=== PATIENT | female | born 1940 | race Caucasian/White ===

== ENCOUNTER 2016-05-17 09:04 | Observation (INO) | payer MEDICARE ==
[~2016-05-17] VITALS: Ht 149.9 cm; Wt 68.7 kg
[~2016-05-17 09:04] MED LIST: ASPI-973 PO; CALC-235 PO; LOSA1TAB69 PO; MULT1CAP33 PO; OMEP20TA86 PO; SIMV10TA4 PO
[2016-05-17 09:07] VITALS: BP 179/80; PULSE 85; RESP 16; O2SAT 96
--- NOTE | 2016-05-17 09:14 | ED.REPORT ---
HPI-General Illness Date of Service May 17, 2016 ED Provider: Dr. Rebolledo Pt is a 76 y/o female w/ a hx of HTN presenting to the ED w/ her c/o intermittent irregular chest palpitations onset about 2 weeks ago. Her palpitations last about a few seconds at a time usually but this morning seemed to increase in frequency She c/o mild chest pressure, nausea, mild SOB. She has also been experiencing some increased chest pressure with mild radiation to the upper back and dyspnea on exertion intermittently for the past month which she has been experiencing mildly for about 1 year. She does not experience any chest pressure or pain at rest. She denies fever, chills, cough, vomiting, sore throat, nasal congestion, abdominal pain. She denies any history of cardiac disease/dysrhythmia. She says that her last echocardiogram was performed years ago (this is not found in her medical record). Nursing Notes Stated Complaint: SOB Chief Complaint: Dysrhythmia/Cardiac Nursing Notes Reviewed: Yes Allergies: Coded Allergies: Contrast Media (Verified Allergy, Severe, HIVES, 05/13/15) iodine (Verified Allergy, Severe, HIVES, 05/13/15) Scheduled Aspirin (Aspirin) 81 Mg Tablet 81 MG PO DAILY Losartan/HCTZ 50-12.5 mg (Losartan/HCTZ 50-12.5 mg) 1 Each Tablet 1 EACH PO DAILY Omeprazole (Omeprazole) 20 Mg Tablet.dr 20 MG PO DAILY Simvastatin (Simvastatin) 10 Mg Tablet 10 MG PO HS Miscellaneous Medications Calcium Carbonate/Vitamin D3 (Calcium 250+D Tablet) 1 Each Tablet 1 EACH PO Multivitamin (Multivitamins) 1 Each Capsule 1 EACH PO General Time Seen by MD: 09:14 Chief Complaint Other (Palpitations) Hx Obtained From: Patient Arrived By: Walk-in Sudden in Onset?: No Onset Occurred: More than a week ago... (2 weeks) Symptom Duration: Intermittent Location: : Chest Quality: Pressure Radiation: : Back Severity: Current: Mild Severity: Maximum: Mild Relieved by: Rest Recent Healthcare: No recent doctor visit Similar Sx Previous: Yes Past Medical History Past Medical History Hypertension Pre-pyloric ulcer Denies: Asthma, COPD, Cancer, Coronary artery disease, Diabetes mellitus, Stroke Denies: Atrial fibrillation, Atrial flutter, Kidney disease, Thyroid disease Past Surgical History Multiple endoscopies Cholecystectomy, cataract surgery Hysterectomy Tonsillectomy Smoking History Never Smoker Social History Alcohol Use: Denies alcohol use Drug Use: Denies drug use Other Social History: Good social support, Ambulatory Status Independent Review of Systems Full Review of Systems Constitutional: Denies: Chills, Fever Ears / Nose / Throat: Denies: Nasal congestion, Sore throat Respiratory: Reports: Shortness of breath, Denies: Non-productive cough Cardiovascular: Reports: Chest pain, Dyspnea on exertion, Palpitations GI: Reports: Nausea, Denies: Abdominal pain, Constipation, Diarrhea, Vomiting Complete sys rev & neg: except as marked. Physical Exam Vital Signs Vital Signs Date Time Temp Pulse Resp B/P Pulse Ox O2 Delivery O2 Flow Rate FiO2 05/17/16 09:07 36.5 85 16 179/80 96 Room Air Initial VS: Reviewed, Vital signs abnormal Head / Eyes: Atraumatic, Normocephalic, PERRL ENT: Mucous membranes moist, Conjunctiva normal, No scleral icterus Neck: Supple, Full range of motion Respiratory: Breath sounds normal, Clear to auscultation, No respiratory distress Cardiovascular: Regular rate & rhythm, Heart sounds normal, Intact distal pulses Abdomen / GI: Soft, Non-tender, No guarding, No rebound, No distention Extremities: Vascular intact, Neuro intact, No swelling, No tenderness Skin: Warm, Dry, No cyanosis Neurologic: Alert, Oriented, Nonfocal Psychiatric: Mood/affect normal, Behavior normal, Normal thought content General/Constitutional: Awake, Alert, No acute distress, Well appearing, Well hydrated, Cooperative, Not toxic appearing Cardiovascular: Heart rate NL, Regular rhythm, Heart sounds NL, No gallop, No murmurs, No rubs, Cap refill not delayed, Peripheral circulation NL Her palpitations are consistent with PVCs seen on the monitor which reproduce her symptoms with a frequency of a few per minute Interpretation & Diagnostics Lab Results Interpretation Result Diagram: 05/17/16 0940 05/17/16 0940 Test 05/17/16 09:40 White Blood Count 9.5th/mm3 (3.8-10.1) Red Blood Count 4.57mil/mm3 (3.90-5.20) Hemoglobin 13.9g/dL (12.0-15.6) Hematocrit 41.3% (35.0-46.0) Mean Corpuscular Volume 90.4fL (81-100) Mean Corpuscular Hemoglobin 30.4pg (27.0-35.0) Mean Corpuscular Hemoglobin Concent 33.7% (32.0-37.0) Red Cell Distribution Width 12.8% (12.3-15.4) Platelet Count 316bil/L (150-400) Neutrophils (%) (Auto) 53.1% (40-74) Lymphocytes (%) (Auto) 31.7% (14-46) Monocytes (%) (Auto) 10.4% (4-12) Eosinophils (%) (Auto) 3.4% (0-5) Basophils (%) (Auto) 1.0% (0-3) Sodium Level 141mEq/L (134-144) Potassium Level 4.8mEq/L (3.5-5.2) Chloride Level 103mEq/L (97-108) Carbon Dioxide Level 20mmol/L (18-29) Blood Urea Nitrogen 21mg/dL (8-27) Creatinine 0.90mg/dL (0.57-1.00) Estimat Glomerular Filtration Rate 87mL/min (>59) Glucose Level 125mg/dL (60-99) Calcium Level 9.4mg/dL (8.5-10.1) Magnesium Level 1.8mg/dL (1.6-2.6) Total Bilirubin 0.3mg/dL (0.0-1.2) Aspartate Amino Transf (AST/SGOT) 30U/L (0-50) Alanine Aminotransferase (ALT/SGPT) 25U/L (0-32) Alkaline Phosphatase 64U/L (25-165) Troponin T 0.010ug/L (0.0-0.011) Total Protein 7.6g/dL (6.4-8.4) Albumin 4.0g/dL (3.4-5.0) ECG Interpretation Time: 09:26 Interpreted by: ED physician Normal ECG Interpretation: Normal ECG w/ rate of... (74), Normal rate, Normal sinus rhythm, No acute ischemic changes, Normal QRS, Normal axis, Normal intervals, Adequate tracing X-Ray Chest Interpretation View: Portable, 1 view Interpretation / Wet Read by: Wet read ED physician NL X-Ray Chest Findings: No infiltrate, No acute disease Re-Eval/Medical Decision Med Decision/Clinical Course PVCs on the monitor seemed to correlate with her symptoms as noted. The thing that worries me about this woman is her age and risk factor of hypertension in the setting of increasing exertional angina over the past months with rest angina this morning associated with achiness across her precordium and back with associated nausea and diaphoresis. The symptoms are resolved now but were somewhat recurrent with minimal exertion here in the emergency department. For these reasons I believe that hospital observation with definitive stress testing is the most appropriate course of action. She is symptom free at rest at this time. Source of Hx: Old records, Family Time of Eval: 10:25 Re-Evaluation/Progress Note: Pt rechecked. She felt a little bit lightheaded and short of breath walking from the bathroom to her room. Pt informed of need for admission for further cardiac workup. Pt understands and agrees with plan for admission. All questions addressed. Consultation : Referral / Consult Name: Ramírez Hathaway MD Consulted With: Hospitalist Requested Call at: 10:48 Call Returned at: 10:52 Counseled Regarding: Diagnosis, Lab results, Need for admission Discharge & Departure Primary Impression: Chest pain Chest pain type: unspecified Qualified Code: R07.9 - Chest pain, unspecified Additional Impression: Premature ventricular contractions Disposition: ADMITTED TO HOSPITAL Discharge Condition All VS Reviewed: Yes Condition: Stable Referrals: Dayne Ruiz MD Attestation Portions of this note were transcribed by Modesto Rodriguez. I, Dr. Rebolledo personally performed the history, physical exam and medical decision-making; I reviewed and confirmed the accuracy of the information in the transcribed note. Signed by Joshua Hi, 05/17/16 - 1036 copies to: Dayne Ruiz MD Risk Factors )( CAD Risk Stratification HypertensionNo Amphetamine, No Cocaine, No Diabetes mellitus, No Family history , No Hyperlipidemia, No Known CAD, No Smoking Risk factors reviewed HEART Score HEART for MACE: Mod index of susp (1), Normal ECG (0), Age 65 or over (2), 1-2 CAD risk factors (1), < or = to NL troponin (0) HEART for MACE Score: 4-7 (mod risk 12%-16.6%) Law Rebolledo MD May 17, 2016 09:14 MODESTO RODRIGUEZ May 17, 2016 09:25
[2016-05-17 09:50] LABS: EOSINOPHILS % (AUTO) 3.4 % (0-5); MONOCYTES % (AUTO) 10.4 % (4-12); Mean Corpuscular Hemoglobin 30.4 pg (27.0-35.0); Mean Corpuscular Volume 90.4 fL (81-100); NEUTROPHILS % (AUTO) 53.1 % (40-74); Platelet Count 316 bil/L (150-400)
[2016-05-17 10:16] LABS: TROPONIN T 0.01 ug/L (0.0-0.011)
--- NOTE | 2016-05-17 10:26 | DRSVH ---
PROCEDURE: X-RAY CHEST ONE VIEW, PORTABLE ([id number]) INDICATIONS: Chest pain TECHNIQUE: One view of the chest was acquired. COMPARISON: None. FINDINGS: Surgical changes and devices: None. Lungs and pleura: No pleural effusions or pneumothorax. Lungs are clear. Mediastinum: Mediastinal contours appear normal. Heart size is normal. Bones and chest wall: No suspicious bony lesions. Overlying soft tissues appear unremarkable. IMPRESSION: No acute process. Dictated by: Adeline Perez M.D. on 05/17/2016 at 10:23 Approved by: Adeline Perez M.D. on 05/17/2016 at 10:24
[2016-05-17 10:27] LABS: Magnesium 1.8 mg/dL (1.6-2.6)
[2016-05-17] MEDS ORDERED: Alum-Mag Hydrox-Simeth 30 mL Suspension PO PRN ×2 (10:55→12:05)
[2016-05-17] MEDS ORDERED: Ondansetron 2 mg/mL 2 mL Inj IVPUSH PRN ×2 (10:55→12:05)
[2016-05-17 10:57] VITALS: BP 150/52; PULSE 69; RESP 19; O2SAT 97
[2016-05-17] MEDS ORDERED: Polyethylene Glycol (PEG) 17 Gm Powder PO PRN (12:05)
[2016-05-17 12:41] LABS: Creatine Kinase 105 U/L (21-215)
--- NOTE | 2016-05-17 13:14 | PCM.HPMED ---
Subjective Date of Service May 17, 2016 Primary Provider: Admitting Physician: Ramírez Hathaway MD Primary Care Physician: Dayne Ruiz MD Attending Physician: Ramírez Hathaway MD Chief Complaint: Palpitation History of Present Illness: Patient is a 76yof with MHx significant for longstanding HTN and dyslipidemia presents with palpitation. Per patient, she woke-up this morning with "fluttery feeling" and associated nausea, lightheadedness, and mild sob unattenuated. She states to having this "butterfly" feeling for the past 1-2wks at least 1-2x daily. Last night however , she woke up with a similar feeling with sweating. Thus, sought medical attention. She denies any chest pain or left arm numbness. Patient is normally active, walks >1mi daily. Though, admits chest pressure at the end of each mile. This has been ongoing for the past 6mo. No recent changes in medications. Review of Systems: Patient is admitted under observation status with expected length of stay LESS than 2 midnights due to severity of presenting symptoms, risk of adverse event, and complexity of treatment plan. Allergies Coded Allergies: Contrast Media (Verified Allergy, Severe, HIVES, 05/13/15) iodine (Verified Allergy, Severe, HIVES, 05/13/15) Home Medications lLosartan/HCTz 50-12.5mg daily Simvastatin 10mg daily Aspirin 8mg daily Calcium + vit D Multivitamins PMH Hypertension Dyslipidemia Surgical History Breast biopsy Histonectomy Cholecystectomy cataract surgery both eyes Family History Father of cancer No hx of early from [place] in the family Social History Occupation: tax staff accountant Hx Alcohol Use: Yes (ONE DRINK EVERY TWO WEEKS) Hx Substance Use: No Hx Tobacco Use: No Smoking Status: Never Smoker Living Arrangement: with Family Exam Vital Signs Vital Sign - Last Date Time Temp Pulse Resp B/P Pulse Ox O2 Delivery O2 Flow Rate FiO2 05/17/16 11:11 36.7 69 19 150/52 97 Room Air Exam Gen: Lying comfortably at 30degree head tilt HEENT: PERRLA, Anicteric sclerae, moist conjunctivae, and no lid lag. Neck: supple, no JVD Cardio: Regular rate and rhythm, systolic 2+ murmur, no rubs or gallops appreciated Pulm: b/l air sound, no crackles, wheezes, or rhonchi. Normal respiratory effort with no use of accessory muscles. Abd: positive bowel tone. Soft, nontender, nondistended. Extremities: No clubbing, cyanosis, edema, or lymphadenopathy appreciated. Skin: Normal temperature, turgor, and texture; no rash, ulcers, or subcutaneous nodules appreciated. Neuro: Cranial nerves grossly intact. moving equally on all four extremities. Psyc: Normal mood and affect. AoX3 Lab and Diagnostics Result Diagram: 05/17/1640 05/17/16939 X-Rays, CTs and MRIs PROCEDURE: X-RAY CHEST ONE VIEW, PORTABLE INDICATIONS: Chest pain IMPRESSION: No acute process. Dictated by: Adeline Perez M.D. on 05/17/2016 at 10:23 Assessment & Plan Patient is a 76yof with MHx significant for longstanding HTN and dyslipidemia presented with palpitation, admitted for ACS r/o. ACS, present on admission, active -- NO ST changes, Troponin T negative, CK/CkMb negative -- Less likely [place]. Chest pain pretest is intermediate given risk factors however. -- Echocardiogram and NM stress testing ordered -- Aspirin 81mg, statins, and lisinopril/ Hctz started, also PRN nitro and morphine -- Labs troponin trending, TSH pending, CMP in the AM -- Telemetry monitoring for arrhythmias. HTN, present on admission, ongoing -- home meds as above Dyslipidemia, present on admission, presumed stable -- Cont statin -- lipid panel in the AM Hyperglycemia, present on admission, active -- A1c pending DVT prophylaxis: heparin subQ Antipyretic: Acetaminophen PRN Antinausea: Ondansetron PRN Bowel regiment PRN Patient is admitted under observation status with expected length of stay LESS than 2 midnights due to severity of presenting symptoms, risk of adverse event, and complexity of treatment plan. GI Prophylaxis: Not indicated VTE Prophylaxis: Sub-Q Heparin (Unfractionated) Resuscitation Status: CPR: Attempt Resuscitation Attending Statement The patient was seen and examined together with Dr. Willy Prescott on 05/17/2016 and I agree with the history, exam and plan as outlined in the note above. Willy Prescott DO May 17, 2016 13:14 Ramírez aHthaway MD May 26, 2016 10:37
[2016-05-17 14:02] VITALS: PULSE 77
[2016-05-17 14:56] LABS: Creatine Kinase 102 U/L (21-215)
[2016-05-17 14:57] LABS: TROPONIN T < 0.010 ug/L (0.0-0.011)
[2016-05-17] MEDS: Heparin 5,000 Unit/mL Inj SUBQ SCH (16:07)
--- NOTE | 2016-05-17 17:00 | NUR ---
Admit Note: Patient was brought to [facility] from the ER at 1140. Patient is alert and oriented x3 . She states that her chest pain has subsided and she is having no pain at this time. Patients med rec was done in the ER by nurse and report was received from the ER nurse. Patient was oriented to her room caregivers and call light. Admit questions were completed by patients recollection. Patient will be having stress test in the morning. She will be NPO after midnight for the test.Patient stated the last caffeine she had was earlier this morning 1/2 cup of decaf. Telemetry was placed on patient. Per field support technician patients HR is 73 SR.
[2016-05-17 20:00] VITALS: PULSE 75
[2016-05-17 21:05] VITALS: BP 127/68; PULSE 76; RESP 18; O2SAT 93
[2016-05-18] MEDS: Heparin 5,000 Unit/mL Inj SUBQ SCH ×3 (01:16→16:51)
[2016-05-18 01:19] VITALS: BP 121/64; PULSE 70; RESP 18; O2SAT 92
--- NOTE | 2016-05-18 01:56 | NUR ---
No "flutters": Pt denies chest "flutters", which is how she describes it. No chest pain/pressure. Is currently NPO for stress test scheduled later today. Tele has been SR 70s.
[2016-05-18 06:18] VITALS: BP 143/74; PULSE 68; RESP 18; O2SAT 95
[2016-05-18 06:52] LABS: Magnesium 1.8 mg/dL (1.6-2.6)
[2016-05-18 08:19] VITALS: PULSE 83
[2016-05-18] MEDS ORDERED: LOSARTAN PO SCH (08:30)
[2016-05-18] MEDS ORDERED: HCTZ PO SCH (08:30)
[2016-05-18 08:32] LABS: APPEARANCE,URINE HAZY (CLEAR,HAZY); COLOR,URINE YELLOW (YELLOW)
[2016-05-18 08:33] LABS: OCCULT BLOOD,URINE TRACE (NEGATIVE); UROBILINOGEN,URINE NORMAL (NORMAL)
--- NOTE | 2016-05-18 13:38 | DRSVH ---
PROCEDURE: 1 DAY TREADMILL STRESS TEST Rest and exercise myocardial perfusion SPECT with gated imaging and ejection fraction RADIOPHARMACEUTICAL: 8.8 mCi Tc-99m tetrafosmin IV at rest and 29.7 mCi Tc-99m tetrafosmin IV at peak exercise. Eie-hrp-uejywavi was performed. INDICATIONS: 76-year-old woman with palpitations. The patient has hypertension and hyperlipidemia. TECHNIQUE: Radiopharmaceutical was injected at peak stress test, and also at rest. SPECT images wer e obtained. SPECT myocardial perfusion images were displayed in short axis, horizontal long axis, an d vertical long axis views. Gated images were reviewed using [employer] software. COMPARISON: [place], [place], CHANA PERF SPECT MULTI (PNL), 12/21/2006, 14:27. [facility], [place], MYOCARD PERF SPECT SINGLE, 04/06/2011, 8:08. CARDIAC STRESS: A standard [place] treadmill exercise tolerance test was performed by the patient under the supervision of an attending staff. The patient exercised for 3 minutes and 0 seconds; functional aerobic impair ment (PETTY) is +31 %. Hemodynamic data: There is normal blood pressure and heart rate response to exercise stress. Patien t achieved 93% of maximum predicted heart rate at peak exercise. Symptoms: Patient denied chest pain during exercise. EKG: No diagnostic EKG changes of ischemia; rare PACs. FINDINGS: Raw data: There is good myocardial labeling by radiotracer. No significant motion artifacts. Left ventricle function: Gated images demonstrate normal left ventricle wall thickening. No segment al wall motion abnormality. No transient ischemic dilation. The left ventricle resting end-diastoli c volume is normal. Left ventricle stress ejection fraction is greater than 70%; normal values are a steven 45%. Myocardial perfusion: There is normal distribution of activity in the left and right ventricular chana cardium. No fixed or reversible perfusion defects. Comparison to prior examinations: Compared with the last examination on 04/06/2011, there is no signi ficant change. IMPRESSION: 1. Normal myocardial perfusion images. 2. Normal left ventricular volume and systolic function. 3. Reduced exercise capacity. No chest pain or diagnostic EKG changes for ischemia. PQRS ATTESTATIONS: Measure 322 - Is this imaging test primarily performed on a low-risk surgery patient for preoperative evaluation within 30 days preceding their low-risk non-cardiac surgery? Low-risk surgery is defined as cardiac or myocardial infarction less than 1%, including (but not limited to) endoscopic pr ocedures, superficial procedures, cataract surgery, and excisional breast surgery: Answer: No Measure 323 - Is this imaging test performed primarily for the monitoring of an asymptomatic patient who had percutaneous coronary intervention on the visit date or within 2 years of the visit date? An swer: No Measure 324 - Is this imaging test performed primarily for the initial detection and risk assessment on an asymptomatic, low coronary heart disease patient? Low CHD risk definition = clinicians should consider the maximum number of available patient factors used to estimate risk based on [place] (A TP III criteria), typically age, gender, diabetes, smoking status, and use of blood pressure medicati on, and integrate age appropriate estimates for missing elements, such as LDL or standard blood press ure. Answer: No Dictated by: Jos Obregon M.D. on 05/18/2016 at 13:29 Approved by: Jos Obregon M.D. on 05/18/2016 at 13:36
--- NOTE | 2016-05-18 14:14 | NUR ---
Social Work Initial Assessment: SW met with patient at bedside to discuss discharge plan. Patient verified name, address, and contact information. Patient id s 76 year old female admitted on 05/17/16 for chest pain. Patient payer as [employer]. Patient has no intermediate disability nor VA benefits. Patient PCP as MD Ruiz. Patient resides in [facility] with Evaristo, who to assist with care needs at home. Patient states pharmacy of choice as [facility]. Patient has no HHC or SNF history. Patient has a walker at bedside. Patient states having AD and patient was encouraged to bring in copy for hospital records. Patient states being independent with needs and states that she still drives independently. Patient denied any discharge needs at this time and states plan as home following stress test today. SW to follow. PLAN: Home with via POV, pending clinical course. SW to follow as further needs arise. Diana BALL Addendum: 05/18/16 at 1418 by HERMILO MALIK Amended: Links added.
[2016-05-18 15:46] VITALS: BP 138/80; PULSE 77; RESP 18; O2SAT 98
--- NOTE | 2016-05-18 16:46 | NUR ---
Case Management: VAZQUEZ explained to patient at 1625, all questions answered. Signed original in chart, copy given to patient. Leslie Maier RN
--- NOTE | 2016-05-18 17:18 | PCM.PNMED ---
Subjective Date of Service May 18, 2016 Subjective Doing well this morning, denies any anginal symptoms or SOB. Did have an NM stress test and was able to tolerate that fairly well. Exam Vital Signs Vital Sign - Last Date Time Temp Pulse Resp B/P Pulse Ox O2 Delivery O2 Flow Rate FiO2 05/18/16 15:46 36.6 77 18 138/80 98 Room Air Intake and Output 05/17/16 05/17/16 05/18/16 Cumulative From/Thru 15:00 23:00 07:00 05/17/16 09:07 - 05/17/16 17:55 Intake Total 400 ml 400 ml Output Total 650 ml 650 ml Balance -250 ml -250 ml Intake Oral 400 ml 400 ml Output Urine Total 650 ml 650 ml # Bowel Movements 0 0 Exam Gen: Well developed female in NAD HEENT: PERRLA, Anicteric sclerae Neck: supple, no JVD Cardio: Regular rate and rhythm, systolic 2+ murmur, no rubs or gallops appreciated Pulm: b/l air sound, no crackles, wheezes, or rhonchi. Normal respiratory effort with no use of accessory muscles. Abd: positive bowel tone. Soft, nontender, nondistended. Extremities: No clubbing, cyanosis, edema, or lymphadenopathy appreciated. Skin: Normal temperature, turgor, and texture; no rash, ulcers, or subcutaneous nodules appreciated. Neuro: Cranial nerves grossly intact. moving equally on all four extremities. Psyc: Normal mood and affect. AoX3 IVs and Medications Medications Reviewed: Medications were reviewed in detail Lab and Diagnostics Result Diagram: 05/17/16 0940 05/18/16 0555 X-Rays, CTs and MRIs PROCEDURE: X-RAY CHEST ONE VIEW, PORTABLE INDICATIONS: Chest pain IMPRESSION: No acute process. Dictated by: Adeline Perez M.D. on 05/17/2016 at 10:23 Assessment & Plan Patient is a 76yof with MHx significant for longstanding HTN and dyslipidemia presented with palpitation, admitted for ACS r/o. ACS, present on admission, active -- NO ST changes, Troponin T negative, CK/CkMb negative -- Less likely [place]. Chest pain pretest is intermediate given risk factors however. -- Echocardiogram and NM stress testing ordered -- Aspirin 81mg, statins, and lisinopril/ Hctz started, also PRN nitro and morphine -- TSH- 0.5, Troponins negative x3 -- Telemetry monitoring for arrhythmias.: no events overnight. HTN, present on admission, ongoing -- home meds as above Dyslipidemia, present on admission, presumed stable -- Cont statin -- lipid panel WNL except mildly elevated Triglycerides Hyperglycemia, present on admission, active -- A1c pending DVT prophylaxis: heparin subQ Antipyretic: Acetaminophen PRN Antinausea: Ondansetron PRN Bowel regiment PRN Likely discharge tomorrow Pain Evaluation: Adequate Pain Control GI Prophylaxis: Not indicated VTE Prophylaxis: Sub-Q Heparin (Unfractionated) Resuscitation Status: CPR: Attempt Resuscitation Time spent 25 minutes Attending Statement I have seen and evaluated patient at bedside in addition to directly supervised care provided by resident physician. I agree with above documentation. Adilson Galvez DO May 18, 2016 17:18 Fam Nguyễn DO May 19, 2016 08:21
--- NOTE | 2016-05-18 18:17 | NUR ---
No Acute Issues this shift. Pt A&Ox3, ALMONTE, Stable - no c/o chest pain or pain in general. ECHO completed ~1400. Awaiting results. Calm and cooperative with care. Care continues.
[2016-05-18 20:00] VITALS: PULSE 72
[2016-05-18 20:40] VITALS: BP 112/68; PULSE 73; RESP 16; O2SAT 94
[2016-05-19 00:34] VITALS: BP 98/67; PULSE 64; RESP 16; O2SAT 98
[2016-05-19] MEDS: Heparin 5,000 Unit/mL Inj SUBQ SCH ×2 (00:41→08:30)
--- NOTE | 2016-05-19 03:15 | NUR ---
Uneventful night: Pt denies chest pain/fluttering. Is anticipating discharge later today. Able to sleep most of the night.
[2016-05-19 05:04] VITALS: BP 124/69; PULSE 65; RESP 18; O2SAT 95
--- NOTE | 2016-05-19 08:29 | PCM.DIMED ---
Adilson Galvez DO 05/19/16 0829: Discharge Instructions Date of Service May 19, 2016 Dates of Hospitalization May 17, 2016 at 10:53 Discharge Diagnosis Discharge Diagnosis Chest Pain - Resolved HTN Dyslipidemia Hyperglycemia Medication Instructions Continue taking your medications as prescribed. Diet Heart Healthy Activity No restrictions Call your provider Fever or Chills, Shortness of breath, Chest pain, Vomitting, Weakness ( unilateral) Patient Instructions You were evaluated for your chest pain. The stress test and echocardiogram did not show anything acutely significant. Please follow up with your primary care doctor, Dr. Dayne Ruiz, within 1 week for re-evaluation. If you have chest pain again, please notify your doctor, go to Urgent Care, or call 911 immediately. Measure and log your blood pressure daily and also when you notice any symptoms with your heart. Follow-up Provider: Dayne Ruiz MD Follow-up with PCP in: 1 week Fam Nguyễn DO 05/19/16 1436: Discharge Instructions Attending's Statement Read and agree Adilson Galvez DO May 19, 2016 08:29 Fam Nguyễn DO May 19, 2016 14:36
[2016-05-19 08:36] VITALS: BP 151/81; PULSE 79; RESP 18; O2SAT 95
--- NOTE | 2016-05-19 10:34 | NUR ---
Discharge Patient departed unit via wheelchair, accompanied by staff and family. Patient alert and oriented x 4. At discharge, patient denied: chest discomfort/pain, shortness of breath, nausea or abdominal discomfort. Discharge instructions/medications reviewed with patient/daughter. All questions addressed. Patient belongings and discharge instructions in hand. No prescriptions written.
--- NOTE | 2016-05-19 10:44 | NUR ---
Social Work-discharge: Data:EMR reviewed. Pt is on day 2 of hospitalization for chest pain resolved per H&P. Pt is medically stable for discharge today. Per RN notes, pt has been up independent in her room. Pt's to provide transport home. No discharge needs identified. All updated and agreeable to plan. Assessment:Pt who is independent at baseline. Plan:Pt to discharge home today via POV. No discharge needs identified. All updated and agreeable to plan. QUINN Mcclellan
--- NOTE | 2016-05-19 15:42 | PCM.DC.MED ---
Discharge Summary Date of Service May 19, 2016 Dates of Hospitalization Date of Hospital Admission May 17, 2016 at 10:53 Date of Discharge: May 19, 2016 Providers: Admitting Physician: Ramírez Hathaway MD Primary Care Physician: Dayne Ruiz MD Attending Physician: Ramírez Hathaway MD Diagnosis at Time of Discharge Diagnosis at Time of Discharge Chest Pain - Resolved HTN Dyslipidemia Hyperglycemia Procedures XRay, CTs & MRIs PROCEDURE: X-RAY CHEST ONE VIEW, PORTABLE INDICATIONS: Chest pain IMPRESSION: No acute process. Dictated by: Adeline Perez M.D. on 05/17/2016 at 10:23 Cardiac Echo Impression Echocardiogram did not show any acute abnormalities on preliminary read Other Diagnostics PROCEDURE: 1 DAY TREADMILL STRESS TEST Rest and exercise myocardial perfusion SPECT with gated imaging and ejection fraction RADIOPHARMACEUTICAL: 8.8 mCi Tc-99m tetrafosmin IV at rest and 29.7 mCi Tc-99m tetrafosmin IV at peak exercise. [id number] was performed. IMPRESSION: 1. Normal myocardial perfusion images. 2. Normal left ventricular volume and systolic function. 3. Reduced exercise capacity. No chest pain or diagnostic EKG changes for ischemia. Brief History Patient is a 76yof with MHx significant for longstanding HTN and dyslipidemia presents with palpitation. Per patient, she woke-up this morning with "fluttery feeling" and associated nausea, lightheadedness, and mild sob unattenuated. She states to having this "butterfly" feeling for the past 1-2wks at least 1-2x daily. Last night however , she woke up with a similar feeling with sweating. Thus, sought medical attention. She denies any chest pain or left arm numbness. Patient is normally active, walks >1mi daily. Though, admits chest pressure at the end of each mile. This has been ongoing for the past 6mo. No recent changes in medications. Hospital Course Patient is a 76yof with MHx significant for longstanding HTN and dyslipidemia presented with palpitation, admitted for ACS r/o. Her EKG did not show anything acute, her Troponins were negative and her Echocardiogram and Stress Test were low risk. She was placed on Telemetry, which did not reveal anything over night. Her chest pain improved overnight and she was tolerating her PO intake, so she was discharged home in good condition. ACS, present on admission, resolved. -- NO ST changes, Troponin T negative, CK/CkMb negative -- Less likely IA. Chest pain pretest is intermediate given risk factors however. -- Echocardiogram and NM stress testing low risk -- Aspirin 81mg, statins, and lisinopril/ Hctz started, also PRN nitro and morphine -- TSH- 0.5, Troponins negative x3 -- Telemetry monitoring for arrhythmias.: no events overnight. HTN, present on admission -- home meds as above Dyslipidemia, present on admission, presumed stable -- Statin was continued -- lipid panel WNL except mildly elevated Triglycerides Hyperglycemia, present on admission -- A1c 6.1 during admission Exam Vital Signs (Last) Date Time Temp Pulse Resp B/P Pulse Ox O2 Delivery O2 Flow Rate FiO2 05/19/16 08:36 36.4 79 18 151/81 95 Room Air Exam Gen: Well developed female in NAD HEENT: PERRLA, Anicteric sclerae Neck: supple, no JVD Cardio: Regular rate and rhythm, systolic 2+ murmur, no rubs or gallops appreciated Pulm: CTAB, no crackles, wheezes, or rhonchi. Normal respiratory effort with no use of accessory muscles. Abd: Soft, nontender, nondistended. Skin: Normal temperature, turgor, and texture; no rash, ulcers, or subcutaneous nodules appreciated. Neuro: Cranial nerves grossly intact. moving equally on all four extremities. Psyc: Normal mood and affect. AoX3 Test 05/17/16 09:40 05/17/16 14:10 05/17/16 20:15 05/18/16 05:55 White Blood Count 9.5th/mm3 (3.8-10.1) Red Blood Count 4.57mil/mm3 (3.90-5.20) Hemoglobin 13.9g/dL (12.0-15.6) Hematocrit 41.3% (35.0-46.0) Mean Corpuscular Volume 90.4fL (81-100) Mean Corpuscular Hemoglobin 30.4pg (27.0-35.0) Mean Corpuscular Hemoglobin Concent 33.7% (32.0-37.0) Red Cell Distribution Width 12.8% (12.3-15.4) Platelet Count 316bil/L (150-400) Neutrophils (%) (Auto) 53.1% (40-74) Lymphocytes (%) (Auto) 31.7% (14-46) Monocytes (%) (Auto) 10.4% (4-12) Eosinophils (%) (Auto) 3.4% (0-5) Basophils (%) (Auto) 1.0% (0-3) Hemoglobin A1c 6.1% (4.8-5.6) Total Bilirubin 0.3mg/dL (0.0-1.2) Aspartate Amino Transf (AST/SGOT) 30U/L (0-50) Alanine Aminotransferase (ALT/SGPT) 25U/L (0-32) Alkaline Phosphatase 64U/L (25-165) Total Protein 7.6g/dL (6.4-8.4) Albumin 4.0g/dL (3.4-5.0) Triglycerides Level 223mg/dL (0-149) Cholesterol Level 167mg/dL (100-199) LDL Cholesterol, Calculated 77.400mg/dL (0-99) VLDL Cholesterol 44.600mg/dL HDL Cholesterol 45mg/dL (>39) Cholesterol/HDL Ratio 3.71 (0.0-4.4) Thyroid Stimulating Hormone (TSH) 0.500uIU/mL (0.450-4.500) Free Thyroxine 1.21ng/dL (0.82-1.77) Total Creatine Kinase 102U/L (21-215) Creatine Kinase MB 2.2ng/mL (0.0-5.3) Creatine Kinase MB % % (0.0-5.0) Troponin T < 0.010ug/L (0.0-0.011) Magnesium Level 1.8mg/dL (1.6-2.6) Test 05/18/16 07:55 05/19/16 06:40 Urine Color Yellow (YELLOW) Urine Appearance Hazy (CLEAR,HAZY) Urine pH 6.0 (5.0-8.0) Urine Specific [place] 1.020 (1.003-1.035) Urine Protein Negativemg/dL (NEG,TRACE) Urine Glucose (UA) Negativemg/dL (NEGATIVE) Urine Ketones Negativemg/dL (NEGATIVE) Urine Occult Blood Trace (NEGATIVE) Urine Nitrite Negative (NEGATIVE) Urine Bilirubin Negative (NEGATIVE) Urine Urobilinogen Normalmg/dL (NORMAL) Urine Leukocyte Esterase Trace (NEGATIVE) Urine RBC 0-2/hpf (0-2) Urine WBC 0-5/hpf (0-5) Urine Epithelial Cells Occasional/hpf (NONE-MOD) Urine Crystals None seen (NONE SEEN) Urine Bacteria None/hpf (NONE-FEW) Urine Hyaline Casts None/lpf (NONE) Urine Granular Casts None seen (NONE SEEN) Urine Waxy Casts None seen (NONE SEEN) Urine Red Blood Cell Casts None seen (NONE SEEN) Urine White Blood Cell Casts None seen (NONE SEEN) Urine Mucus Present (None Seen) Urine Trichomonas None seen (NONE SEEN) Urine Yeast None (NONE SEEN) Urinalysis Comment None Urine Culture Reflexed Indicated Sodium Level 137mEq/L (134-144) Potassium Level 4.4mEq/L (3.5-5.2) Chloride Level 100mEq/L (97-108) Carbon Dioxide Level 21mmol/L (18-29) Blood Urea Nitrogen 27mg/dL (8-27) Creatinine 1.08mg/dL (0.57-1.00) Estimat Glomerular Filtration Rate 71mL/min (>59) Glucose Level 113mg/dL (60-99) Calcium Level 9.6mg/dL (8.5-10.1) Discharge Medications Discharge Medications Aspirin (Aspirin) 81 Mg Tablet 81 MG PO DAILY (Reported) Losartan/HCTZ 50-12.5 mg (Losartan/HCTZ 50-12.5 mg) 1 Each Tablet 1 EACH PO DAILY (Reported) Omeprazole (Omeprazole) 20 Mg Tablet.dr 20 MG PO DAILY (Reported) Simvastatin (Simvastatin) 10 Mg Tablet 10 MG PO HS (Reported) Miscellaneous Medications Calcium Carbonate/Vitamin D3 (Calcium 250+D Tablet) 1 Each Tablet 1 EACH PO ( Reported) Multivitamin (Multivitamins) 1 Each Capsule 1 EACH PO (Reported) Additional med instructions Continue taking your medications as prescribed. Followup Plan Disposition: Home Discharge Diet: Heart Healthy Discharge Activity: No restrictions Patient Instructions You were evaluated for your chest pain. The stress test and echocardiogram did not show anything acutely significant. Please follow up with your primary care doctor, Dr. Dayne Ruiz, within 1 week for re-evaluation. If you have chest pain again, please notify your doctor, go to Urgent Care, or call 911 immediately. Measure and log your blood pressure daily and also when you notice any symptoms with your heart. Follow-up Provider: Dayne Ruiz MD Follow-up with PCP in: 1 week Time spent 40 minutes Attending Statement I have seen and evaluated patient in addition to directly supervising care provided by resident. I agree with above documentation. copies to: Dayne Ruiz MD, Hong D DO May 19, 2016 15:42 Fam Nguyễn DO May 20, 2016 08:00
--- NOTE | 2016-05-20 10:17 | DRSVH ---
[address] [place] [address] Echocardiogram Report Name: MOISÉS JEAN LStudy Usman te: 05/18/2016 Height: 59 in Hospital Exam Location: [facility] Weight: 151 lb Gender: Female BSA: 1.6 m2 : 1940 Age: 76 yrs BP: 143/74 mmHg Reason For Study: Chest pain History: Hypertension Ordering Physician: Performed By: Vidhya Hill Referring Physician: Immanuel Ruiz Interpretation Summary The left ventricular cavity is small. The ejection fraction is estimated to be 70-75%. There are no focal wall motion abnormalities. Assessment of diastolic parameters indicates a relaxation abnormality of the left ventricle, consistent with normal filling pressures. The right ventricle is normal in size and function. The right ventricular systolic pressure is estimated at least 31 mmHg assuming a right atrial pressure of 8 mm Hg. The IVC is of normal diameter and collapses less than 50% with a sniff. This suggests a right atrial pressure of 8 mm Hg. There is a small pericardial effusion noted. No other echocardiographic abnormalities seen. Procedure: A two-dimensional transthoracic echocardiogram with color flow and Doppler was performed. The study quality was technically adequate. There is no prior echocardiogram noted for this patient. The patient was in normal sinus rhythm during the exam. Left Ventricle: The left ventricular cavity is small. The left ventricle is mildly hyperdynamic. The ejection fraction is estimated to be 70-75%. There are no focal wall motion abnormalities. Assessment of diastolic parameters indicates a relaxation abnormality of the left ventricle, consistent with normal filling pressures. Right Ventricle: The right ventricle is normal in size and function. Atria: Both atria are normal in size. The interatrial septum is intact with no evidence for an atrial septal defect. There is no Doppler evidence for an interatrial shunt. Mitral Valve: The mitral valve is normal in structure and function. There is trace mitral regurgitation. Aortic Valve: The aortic valve is normal in structure and function. There is trace aortic regurgitation. Tricuspid Valve: The tricuspid valve is normal in structure and function. There is a trace or physiologic amount of tricuspid regurgitation. The right ventricular systolic pressure is estimated at least 31 mmHg assuming a right atrial pressure of 8 mm Hg. Pulmonic Valve: The pulmonic valve is not well visualized. There is no pulmonic valvular stenosis. There is a trace or physiologic amount of pulmonic regurgitation. Great Vessels: The aortic root is normal size. The ascending aorta is normal in size. The aortic arch is normal in size. The IVC is of normal diameter and collapses less than 50% with a sniff. This suggests a right atrial pressure of 8 mm Hg. Pericardium/ Pleura There is a small pericardial effusion noted. MMode/2D Measurements & Calculations LVIDd: 4.2 cm LA dimension: 3.9 cm RA long axis LVOT diam: 1.9 cm LVIDs: 2.3 cm AoV Opening FS: 46.4 % LA A2 area: 16.1 cm RA area EPSS: 0.37 cm LA A4 area: 16.1 cm Ao root diam IVSd: 1.2 cm LA length (vol) : 10.5 cm LVPWd: 0.86 cm RA vol Aortic Jxn: 2.2 cm LA vol: 45.8 ml : 17.4 ml asc Aorta Diam LA vol index RA : 10.6 mm2 Ao Arch Diam (Prox Trans): 2.8 cm IVC diam: 2.0 cm LV penaloza. diameter/BSA LV sys. diameter/BSA RVD1 (basal) (cm/m^2): 2.6 (cm/m^2): 1.4 Doppler Measurements & Calculations Ao V2 max MV E max dillon MV E/A: 0.43 TR max dillon : 133.9 cm/sec : 50.1 cm/sec Med Peak E' Dillon : 241.5 cm/sec Ao max PG MV A max dillon TR max PG : 7.2 mmHg : 117.2 cm/sec E/E' med: 14.2 : 23.3 mmHg Ao mean PG MV P1/2t: 72.2 msec Lat Peak E' Dillno PA V2 max : 92.6 cm/sec LVOT Max Dillon E/E' lat: 13.6 PA mean PG : 97.5 cm/sec E/e' average: 13.9 Pulm A Revs Dur PA Accel Time CEFERINO(I,D): 2.2 cm : 0.10 sec sev ratio MV A dur: 0.11 sec MV dec time MV P1/2t max dillon Ao V2 mean LV V1 max PG : 0.24 sec : 83.5 cm/sec MVA(P1/2t): 3.0 cm2 Ao V2 VTI: 25.9 cm LV V1 VTI CEFERINO(V,D): 2.1 cm2 : 19.3 cm PA V2 mean CEFERINO indexed to BSA Pulm A Revs Dur - MV : 63.5 cm/sec (cm^2/m^2): 1.3 A Dur: -0.01 msec Reading Physician:10:16 AM
== END 2016-05-19 10:40 | disposition home or self-care (01) ==
LOC: SED 09:04 → MPC 10:53
PROVIDERS: ADMIT Family Medicine; ATTEND Family Medicine
DX: I24.9 Acute ischemic heart disease, unspecified (principal); I10 Essential (primary) hypertension; E78.5 Hyperlipidemia, unspecified; R73.9 Hyperglycemia, unspecified; R07.9 Chest pain, unspecified; Z79.82 Long term (current) use of aspirin
CPT/HCPCS: 36415; 71010; 78452; 80048; 80053; 80061; 81000; 82550; 82553; 83036; 83735; 84439; 84443; 84484; 85025; 87086; 93005; 93017; 99285; A9502; C8929; G0378; J1644

== ENCOUNTER 2016-09-20 12:25 | Emergency (ER) | payer MEDICARE ==
[~2016-09-20] VITALS: Ht 147.3 cm; Wt 68.2 kg
[2016-09-20 12:31] VITALS: BP 154/77; PULSE 87; RESP 16; O2SAT 95
--- NOTE | 2016-09-20 12:41 | ED.REPORT ---
HPI-General Illness Date of Service Sep 20, 2016 ED Provider: Reyes Gillespie DO Pt is a 76 year old female with a hx of HTN, hyperlipidemia and severe right shoulder arthritis presenting to the ED complaining of urinary frequency onset this morning. Associated symptoms include increased urination, lower back pain, nausea, chills, fatigue. Denies abd pain, diarrhea, fever, dysuria. Denies recent hx of UTI. Nursing Notes Stated Complaint: CHILLS,ABD PAIN Chief Complaint: Female Abdominal Pain Nursing Notes Reviewed: Yes Allergies: Coded Allergies: Contrast Media (Verified Allergy, Severe, HIVES, 05/13/15) iodine (Verified Allergy, Severe, HIVES, 05/13/15) Scheduled Aspirin (Aspirin) 81 Mg Tablet 81 MG PO DAILY Cephalexin (Keflex) 500 Mg Capsule 500 MG PO TID Losartan/HCTZ 50-12.5 mg (Losartan/HCTZ 50-12.5 mg) 1 Each Tablet 1 EACH PO DAILY Omeprazole (Omeprazole) 20 Mg Tablet.dr 20 MG PO DAILY Simvastatin (Simvastatin) 10 Mg Tablet 10 MG PO HS Miscellaneous Medications Calcium Carbonate/Vitamin D3 (Calcium 250+D Tablet) 1 Each Tablet 1 EACH PO Multivitamin (Multivitamins) 1 Each Capsule 1 EACH PO General Time Seen by MD: 12:40 Chief Complaint Urinary frequency Hx Obtained From: Patient Arrived By: Walk-in Sudden in Onset?: No Onset Occurred: Just prior to arrival Symptom Duration: Since onset Location: : Back (Lower) Quality: Painful Severity: Current: Mild Severity: Maximum: Moderate Recent Healthcare: No recent doctor visit, No recent hospitalization Similar Sx Previous: No Past Medical History Past Medical History Hypertension Pre-pyloric ulcer Severe arthritis right shoulder Past Surgical History Multiple endoscopies Cholecystectomy, cataract surgery Hysterectomy Tonsillectomy Smoking History Never Smoker Social History Alcohol Use: Denies alcohol use Drug Use: Denies drug use Other Social History: Good social support, Ambulatory Status Independent Review of Systems Full Review of Systems Constitutional: Reports: Chills, Fatigue, Denies: Fever GI: Reports: Nausea, Denies: Abdominal pain, Diarrhea Female: Reports: Flank pain, Urinary frequency, Urination increased, Denies: Dysuria Musculoskeletal: Reports: Back pain Complete sys rev & neg: except as marked. Physical Exam Vital Signs Vital Signs Date Time Temp Pulse Resp B/P Pulse Ox O2 Delivery O2 Flow Rate FiO2 6/4/17 14:54 36.5 72 125/64 97 Room Air 09/20/16 12:31 36.4 87 16 154/77 95 Room Air Initial VS: Reviewed General/Constitutional: Well-developed, Well-nourished Head / Eyes: Atraumatic, Normocephalic, PERRL ENT: Mucous membranes moist, Conjunctiva normal, No scleral icterus Respiratory: Breath sounds normal, Clear to auscultation, No respiratory distress Cardiovascular: Regular rate & rhythm, Heart sounds normal, Intact distal pulses Abdomen / GI: Soft, Non-tender, No guarding, No rebound, No distention Skin: Warm, Dry, No cyanosis Neurologic: Alert, Oriented, Nonfocal Psychiatric: Mood/affect normal, Behavior normal, Normal thought content Back: Atraumatic, Full range of motion CVA tenderness to palpation. Interpretation & Diagnostics Lab Results Interpretation Result Diagram: 09/20/16 1320 09/20/16 1320 Test 09/20/16 13:20 White Blood Count 12.4th/mm3 (3.8-10.1) Red Blood Count 4.50mil/mm3 (3.90-5.20) Hemoglobin 13.7g/dL (12.0-15.6) Hematocrit 40.5% (35.0-46.0) Mean Corpuscular Volume 90.0fL (81-100) Mean Corpuscular Hemoglobin 30.4pg (27.0-35.0) Mean Corpuscular Hemoglobin Concent 33.8% (32.0-37.0) Red Cell Distribution Width 12.9% (12.3-15.4) Platelet Count 322bil/L (150-400) Neutrophils (%) (Auto) 60.4% (40-74) Lymphocytes (%) (Auto) 28.3% (14-46) Monocytes (%) (Auto) 9.1% (4-12) Eosinophils (%) (Auto) 1.5% (0-5) Basophils (%) (Auto) 0.4% (0-3) Sodium Level 140mEq/L (134-144) Potassium Level 4.1mEq/L (3.5-5.2) Chloride Level 102mEq/L (97-108) Carbon Dioxide Level 22mmol/L (18-29) Blood Urea Nitrogen 20mg/dL (8-27) Creatinine 0.98mg/dL (0.57-1.00) Estimat Glomerular Filtration Rate 79mL/min (>59) Glucose Level 111mg/dL (60-99) Lactic Acid Level 1.4mmol/L (0.4-2.0) Calcium Level 9.5mg/dL (8.5-10.1) Magnesium Level 2.0mg/dL (1.6-2.6) Total Bilirubin 0.4mg/dL (0.0-1.2) Aspartate Amino Transf (AST/SGOT) 20U/L (0-50) Alanine Aminotransferase (ALT/SGPT) 25U/L (0-32) Alkaline Phosphatase 72U/L (25-165) Total Protein 7.8g/dL (6.4-8.4) Albumin 4.2g/dL (3.4-5.0) Lipase 25U/L (13-60) CT Abd / Pelvis Interpretation CT KUB: IMPRESSION: Prior cholecystectomy, prior appendectomy, source of current flank pain is not seen. Dictated by: Mike Junior M.D. on 09/20/2016 at 13:55 Interpretation / Wet Read by: Interpret - Radiologist Re-Eval/Medical Decision Med Decision/Clinical Course Patient's chief complaint is urinary frequency, her urinalysis is grossly unremarkable as well as her labs and CT scan. However, based on her symptoms will start her on Keflex as this may be a urinary tract infection. Patient is discharged with strict return and follow-up precautions Time of Eval: 13:05 Patient Status: Condition improved Re-Evaluation/Progress Note: Discussed urine results and plan for CT. Time of Eval: 14:26 Patient Status: Condition improved Re-Evaluation/Progress Note: Pt is feeling better and wants to go home. Discussed abx to treat urinary frequency. Counseled Regarding: Diagnosis, Lab results, Need for follow-up, When/why to return to ED Discharge & Departure Primary Impression: Urinary frequency Disposition: Home Discharge Condition All VS Reviewed: Yes Condition: Improved Additional Instructions: Your labs and CAT scan are reassuring. We do not see an obvious signs of urinary tract infection. However, we will start you on an antibiotic as your symptoms are typically caused by urinary tract infection. Begin taking Keflex. Call your regular doctor for close follow-up in the next 2 days. Return to the ER as needed for high fever, vomiting, severe pain or other concerns. Referrals: Dayne Ruiz MD (PCP) Simeonibshailesh Attestation Portions of this note were transcribed by Carla Kimbrough. I, Dr. Gillespie personally performed the history, physical exam and medical decision-making; I reviewed and confirmed the accuracy of the information in the transcribed note. Signed by: Joshua Beltre, 09/20/2016 at 1435. copies to: Dayne Ruiz MD, Timothy S DO Sep 20, 2016 12:41 CARLA KIMBROUGH Sep 20, 2016 12:50
[2016-09-20] MEDS ORDERED: Ondansetron 2 mg/mL 2 mL Inj IVPUSH ONE (13:00)
[2016-09-20] MEDS ORDERED: 0.9% Sodium Chloride 1,000 ML IV ONE (13:00)
[2016-09-20] MEDS ORDERED: Ketorolac 15 mg/mL Inj IVPUSH ONE (13:00)
[2016-09-20 13:30] LABS: BASOPHILS % (AUTO) 0.4 % (0-3); EOSINOPHILS % (AUTO) 1.5 % (0-5); MONOCYTES % (AUTO) 9.1 % (4-12); Mean Corpuscular Hemoglobin 30.4 pg (27.0-35.0); NEUTROPHILS % (AUTO) 60.4 % (40-74); Platelet Count 322 bil/L (150-400)
--- NOTE | 2016-09-20 13:58 | DRSVH ---
PROCEDURE: CT KUB ([id number]) INDICATIONS: flank pain TECHNIQUE: Noncontrast 5 mm thick sections acquired from the diaphragms to the symphysis. 5 mm thick coronal an d sagittal reformats were then performed. For radiation dose reduction, the following was used: aut omated exposure control, adjustment of mA and/or kV according to patient size. COMPARISON: None. FINDINGS: Image quality: Excellent. Lung bases: Lung bases are clear. Heart size is normal. Urinary system: Both kidneys are normal in size. No kidney stones. No hydronephrosis or perinephri c fat stranding. Both ureters appear non-dilated throughout their expected courses. Bladder wall th ickness is normal; no calcified bladder stones. Other solid organs: Liver and spleen are normal in size. Gallbladder has been surgically resected. Pancreas is normal in contours. No adrenal nodules. Peritoneum and bowel: Unenhanced bowel loops demonstrate normal wall thickness and caliber. No free fluid or air. Nodes and vessels: No retroperitoneal or mesenteric adenopathy by size criteria. Aorta and inferior vena cava are normal in caliber. Abdominal wall: No ventral hernias. Pelvis: No free pelvic fluid. No inguinal hernias or adenopathy. Surgical clips suggest prior appe ndectomy. Bones: No suspicious bony lesions. No vertebral body compression fractures. IMPRESSION: Prior cholecystectomy, prior appendectomy, source of current flank pain is not seen. Dictated by: Mike Junior M.D. on 09/20/2016 at 13:55 Approved by: Mike Junior M.D. on 09/20/2016 at 13:57
[2016-09-20 14:20] VITALS: BP 122/77; PULSE 84; O2SAT 94
[2016-09-20] MEDS ORDERED: CEPH-512 PO (14:35)
[2016-09-20 14:54] VITALS: BP 125/64; PULSE 72; O2SAT 97
== END 2016-09-20 14:56 | disposition home or self-care (01) ==
LOC: SED 12:25
DX: R35.0 Frequency of micturition (principal); I10 Essential (primary) hypertension; E78.5 Hyperlipidemia, unspecified; Z90.710 Acquired absence of both cervix and uterus; Z79.82 Long term (current) use of aspirin; Z79.899 Other long term (current) drug therapy; Z91.041 Radiographic dye allergy status
CPT/HCPCS: 36415; 74176; 80053; 81002; 83605; 83690; 83735; 85025; 96361; 96374; 96375; 99285; J1885; J2405; J7030